=== PATIENT | male | born 1970 | race Caucasian/White ===

== ENCOUNTER 2021-03-24 12:19 | Emergency (ER) | payer MEDICAID ==
[~2021-03-24] VITALS: Ht 187.9 cm; Wt 83.9 kg
--- NOTE | 2021-03-24 12:44 | ED General ---
General Stated Complaint: CURYR,SOB,CONGESTION,BACK PAIN,CP Source of Information: Patient Exam Limitations: No Limitations (RICHMOND ALONZO APRN) History of Present Illness Date Seen by Provider: Mar 24, 2021 Time Seen by Provider: 12:42 Initial Comments To ER with headache, shortness of breath, cough congestion, back pain, chest pain, nausea, body aches. He is known to be Covid positive. He is unvaccinated and did not receive the infusion. Symptoms began on 03/12/2021. He tested positive at [facility] on 03/14/2021. He is otherwise healthy and takes no medications. Oxygen saturation 93% on arrival on room air here. Timing/Duration: Other Severity: Moderate Associated Systoms: Chest Pain, Cough, Fever/Chills, Headaches, Loss of Appetite, Malaise, Nausea/Vomiting (RICHMOND ALONZO APRN) Allergies and Home Medications Allergies Coded Allergies: No Known Drug Allergies (Unverified , 03/24/21) Patient Home Medication List Home Medication List Reviewed: Yes (RICHMOND ALONZO APRN) Albuterol Sulfate (Proair Hfa) 1 Puff Puff, 2 PUFF IH Q4H PRN for SHORTNESS OF BREATH Prescribed by: RICHMOND ALONZO on 03/24/21 1458 Dexamethasone (Decadron) 6 Mg Tablet, 6 MG PO DAILY Prescribed by: RICHMOND ALONZO on 03/24/21 1458 Hydrocodone/Acetaminophen (Hydrocodone-Acetamin 5-325 mg) 1 Each Tablet, 1 TAB PO Q4H PRN for PAIN-MODERATE (5-7) Prescribed by: RICHMOND ALONZO on 03/24/21 1458 Ondansetron (Ondansetron Odt) 8 Mg Tab.rapdis, 8 MG PO Q6H PRN for NAUSEA /VOMITING Prescribed by: RICHMOND ALONZO on 03/24/21 1458 Review of Systems Review of Systems Constitutional: see HPI, chills, fever EENTM: see HPI Respiratory: see HPI, cough, short of breath Cardiovascular: no symptoms reported, chest pain Genitourinary: no symptoms reported Musculoskeletal: no symptoms reported, muscle pain Skin: no symptoms reported Psychiatric/Neurological: See HPI, Headache Hematologic/Lymphatic: No Symptoms Reported Immunological/Allergic: no symptoms reported (RICHMOND ALONZO APRN) Physical Exam Vital Signs Vital Signs - First Documented (BRUKOLBYGEMANN,HALEIGH T MD) Vital Signs Capillary Refill : (RICHMOND ALONZO APRN) Height, Weight, BMI Height: '" Weight: lbs. oz. kg; BMI Method: General Appearance: No Apparent Distress, WD/WN, Thin, Other (No distress. Temperature 100.4, heart rate 85, oxygen 93 to 94% room air blood pressure 109/82. Flat affect, soft-spoken.) Eyes: Bilateral Eye Normal Inspection, Bilateral Eye PERRL, Bilateral Eye EOMI HEENT: PERRL/EOMI, TMs Normal Respiratory: No Accessory Muscle Use, No Respiratory Distress Cardiovascular: Regular Rate, Rhythm, Normal Peripheral Pulses Gastrointestinal: Normal Bowel Sounds, Non Tender, Soft Extremity: Normal Capillary Refill, Normal Inspection Neurologic/Psychiatric: Alert, Oriented x3 Skin: Normal Color (RICHMOND ALONZO APRN) Focused Exam Lactate Level 03/24/21 12:40: Lactic Acid Level 1.08 (HALEIGH CUELLAR MD) Lactic Acid Level Laboratory Tests Test 03/24/21 12:40 Lactic Acid Level 1.08 MMOL/L (0.50-2.00) (HALEIGH CUELLAR MD) Progress/Results/Core Measures Suspected Sepsis SIRS Temperature: Pulse: Respiratory Rate: Laboratory Tests 03/24/21 12:40: White Blood Count 8.0 Blood Pressure / Mean: 03/24/21 12:40: Lactic Acid Level 1.08 Laboratory Tests 03/24/21 12:40: Creatinine 1.03, Platelet Count 349, Total Bilirubin 0.7 (RICHMOND ALONZO APRN) Results/Orders Lab Results Laboratory Tests Test 03/24/21 12:40 Range/Units White Blood Count 8.0 4.3-11.0 10^3/uL Red Blood Count 5.48 4.30-5.52 10^6/uL Hemoglobin 16.4 13.3-17.7 g/dL Hematocrit 48 40-54 % Mean Corpuscular Volume 88 80-99 fL Mean Corpuscular Hemoglobin 30 25-34 pg Mean Corpuscular Hemoglobin Concent 34 32-36 g/dL Red Cell Distribution Width 11.9 10.0-14.5 % Platelet Count 349 130-400 10^3/uL Mean Platelet Volume 9.0 9.0-12.2 fL Immature Granulocyte % (Auto) 0 % Neutrophils (%) (Auto) 75 42-75 % Lymphocytes (%) (Auto) 17 12-44 % Monocytes (%) (Auto) 8 0-12 % Eosinophils (%) (Auto) 0 0-10 % Basophils (%) (Auto) 0 0-10 % Neutrophils # (Auto) 6.0 1.8-7.8 10^3/uL Lymphocytes # (Auto) 1.3 1.0-4.0 10^3/uL Monocytes # (Auto) 0.6 0.0-1.0 10^3/uL Eosinophils # (Auto) 0.0 0.0-0.3 10^3/uL Basophils # (Auto) 0.0 0.0-0.1 10^3/uL Immature Granulocyte # (Auto) 0.0 0.0-0.1 10^3/uL D-Dimer 2.64 H 0.00-0.49 UG/ML Sodium Level 140 135-145 MMOL/L Potassium Level 3.8 3.6-5.0 MMOL/L Chloride Level 103 98-107 MMOL/L Carbon Dioxide Level 25 21-32 MMOL/L Anion Gap 12 5-14 MMOL/L Blood Urea Nitrogen 15 7-18 MG/DL Creatinine 1.03 0.60-1.30 MG/DL Estimat Glomerular Filtration Rate 76 BUN/Creatinine Ratio 15 Glucose Level 111 H 70-105 MG/DL Lactic Acid Level 1.08 0.50-2.00 MMOL/L Calcium Level 9.0 8.5-10.1 MG/DL Corrected Calcium 9.3 8.5-10.1 MG/DL Total Bilirubin 0.7 0.1-1.0 MG/DL Aspartate Amino Transf (AST/SGOT) 39 H 5-34 U/L Alanine Aminotransferase (ALT/SGPT) 32 0-55 U/L Alkaline Phosphatase 53 40-136 U/L Troponin I < 0.028 <0.028 NG/ML C-Reactive Protein High Sensitivity 4.33 H 0.00-0.50 MG/DL B-Type Natriuretic Peptide < 10.0 <100.0 PG/ML Total Protein 7.9 6.4-8.2 GM/DL Albumin 3.6 3.2-4.5 GM/DL Procalcitonin 0.05 <0.10 NG/ML (HALEIGH CUELLAR MD) Micro Results Microbiology 03/24/21 Blood Culture - Preliminary, Resulted No growth 03/24/21 Blood Culture - Preliminary, Resulted No growth (HALEIGH CUELLAR MD) Vital Signs/I&O 03/24/21 03/24/21 03/24/21 03/24/21 12:25 12:25 12:58 13:28 Temp 37.9 37.9 37.9 37.6 Pulse 83 83 Resp 20 20 B/P (MAP) 109/82 109/82 (91) Pulse Ox 93 93 03/24/21 14:35 Temp 37.4 Pulse 67 Resp 18 B/P (MAP) 104/75 Pulse Ox 95 (HALEIGH CUELLAR MD) Vital Signs/I&O Capillary Refill : (RICHMOND ALONZO APRN) Departure Communication (Admissions) Family Conversation NAME: CHRIS VALENTIN [facility] REC#: [id number] PT STATUS: REG ER : 1970 PHYSICIAN: RICHMOND ALONZO APRN ADMIT DATE: 03/24/21/ER Draft Date of Exam:03/24/21 CT ANGIO CHEST W PROCEDURE: CT angiography of the chest with contrast. TECHNIQUE: Multiple contiguous axial images were obtained through the chest after uneventful bolus administration of intravenous contrast. 3D reconstructed CTA MIP acquisitions were also performed. Auto Exposure Controls were utilized during the CT exam to meet ALARA standards for radiation dose reduction. INDICATION: Elevated D-dimer and shortness of air. Patient is COVID 19 positive. Evaluation of pulmonary arterial system is without evidence of thrombus embolism. No filling defects are seen within central, lobar segmental branches. Thoracic aorta is normal caliber. There is no dissection. No pericardial or pleural fluid is detected. There are patchy groundglass infiltrates throughout bilateral upper and lower lobes as well as the lingula and right middle lobe consistent with COVID 19 pneumonia. Upper abdomen is unremarkable. IMPRESSION: 1. No evidence of pulmonary embolism or acute aortic disease. 2. Bilateral groundglass pulmonary infiltrates consistent with COVID 19 pneumonia. Report was faxed to [place] by alvarez at 2:19pm. Dictated on workstation # [id number] Dict: 03/24/21 1412 Trans: 03/24/21 1420 [facility] [id number] Interpreted by: ROME LOPEZ MD Electronically signed by: EKG shows sinus rhythm at [address] segment changes no ectopy normal intervals (RICHMOND ALONZO APRN) Impression Primary Impression: COVID-19 Disposition: 01 HOME, SELF-CARE Condition: Stable Departure-Patient Inst. Decision time for Depature: 14:22 (RICHMOND ALONZO APRN) Referrals: NO,LOCAL PHYSICIAN (PCP/Family) Primary Care Physician Patient Instructions: COVID-19 ED Add. Discharge Instructions: 1. Use Tylenol and ibuprofen for fevers and body aches. Steroid as directed. Return to ER for any concerns. Scripts Albuterol Sulfate (PROAIR HFA) 1 Puff Puff 2 PUFF IH Q4H PRN for SHORTNESS OF BREATH, #1 EA 1 PUFF = 90 MCG. Prov: RICHMOND ALONZO APRN 03/24/21 Dexamethasone (Decadron) 6 Mg Tablet 6 MG PO DAILY, #5 TAB . Prov: RICHMOND ALONZO APRN 03/24/21 Ondansetron (Ondansetron Odt) 8 Mg Tab.rapdis 8 MG PO Q6H PRN for NAUSEA/VOMITING, #10 TAB . Prov: RICHMOND ALONZO APRN 03/24/21 Hydrocodone/Acetaminophen (Hydrocodone-Acetamin 5-325 mg) 1 Each Tablet 1 TAB PO Q4H PRN for PAIN-MODERATE (5-7), #10 TAB . Prov: RICHMOND ALONZO APRN 03/24/21 Work/School Note: Work Release Form Date Seen in the Emergency Department: Mar 24, 2021 Return to Work: Mar 27, 2021 ATTENDING PHYSICIAN NOTE: I was physically present as attending physician in the emergency department during the care of this patient, but I was not directly involved in the decision making or delivery of care for this patient. (HALEIGH CUELLAR MD) RICHMOND ALONZO APRN Mar 24, 2021 12:44 HALEIGH CUELLAR MD Mar 27, 2021 06:48
[2021-03-24] MEDS ORDERED: ONDANSETRON 4 MG/2 ML (SDV) Z0FRAN IVP ONE (12:45)
[2021-03-24] MEDS ORDERED: LACTATED RINGERS 1,000 ML IV SCH (12:45)
[2021-03-24] MEDS ORDERED: KETOROLAC 30 MG/ML VIAL IVP ONE (12:45)
[2021-03-24] MEDS ORDERED: ACETAMINOPHEN 500 MG TAB (TYLENOL) PO ONE (12:45)
[2021-03-24 12:53] LABS: BASOPHILS % (AUTO) 0 % (0-10); EOSINOPHILS % (AUTO) 0 % (0-10); HEMATOCRIT 48 % (40-54); HEMOGLOBIN 16.4 g/dL (13.3-17.7); LYMPHOCYTES # (AUTO) 1.3 10^3/uL (1.0-4.0); LYMPHOCYTES % (AUTO) 17 % (12-44); MEAN CORPUSCULAR HEMOGLOBIN 30 pg (25-34); MEAN CORPUSCULAR HGB CONC 34 g/dL (32-36); MEAN CORPUSCULAR VOLUME 88 fL (80-99); MONOCYTES # (AUTO) 0.6 10^3/uL (0.0-1.0); MONOCYTES % (AUTO) 8 % (0-12); NEUTROPHILS % (AUTO) 75 % (42-75); PLATELET COUNT 349 10^3/uL (130-400)
[2021-03-24 13:03] LABS: ALBUMIN 3.6 GM/DL (3.2-4.5)
[2021-03-24 13:04] LABS: CHLORIDE 103 MMOL/L (98-107); POTASSIUM 3.8 MMOL/L (3.6-5.0); SODIUM 140 MMOL/L (135-145)
[2021-03-24 13:06] LABS: GLUCOSE 111 MG/DL (70-105); TOTAL PROTEIN 7.9 GM/DL (6.4-8.2)
[2021-03-24 13:07] LABS: CARBON DIOXIDE 25 MMOL/L (21-32)
[2021-03-24 13:08] LABS: BILIRUBIN,TOTAL 0.7 MG/DL (0.1-1.0)
[2021-03-24 13:09] LABS: ALKALINE PHOSPHATASE 53 U/L (40-136)
[2021-03-24 13:10] LABS: CREATININE SERUM 1.03 MG/DL (0.60-1.30); GFR ESTIMATED 76
[2021-03-24 13:11] LABS: BUN/CREATININE RATIO 15
[2021-03-24 13:13] LABS: ALANINE AMINOTRANSFERASE 32 U/L (0-55)
--- NOTE | 2021-03-24 13:30 | Diagnostic Imaging Report ---
Portable erect AP chest at 120h. INDICATION: Cough The heart size is within normal limits and stable when compared to 08/16/2011. In the interval since the prior study however alveolar/interstitial infiltrates have developed in both lungs with relative sparing of the right upper lobe. These findings are most likely due to pneumonia/atelectasis and may well be related to the patient's diagnosis of COVID 19. There is no significant pleural effusion identified. The mediastinum is not widened. The osseous structures are intact. IMPRESSION: The appearance of the chest has worsened since the prior study as bilateral alveolar/interstitial pulmonary infiltrates have developed. These are most likely due to pneumonia/atelectasis and may well be related to the patient's diagnosis of COVID 19. Report was faxed to [place] by alvarez at 1:30PM. Dictated by: Dictated on workstation # [id number]
[2021-03-24] MEDS ORDERED: NS 100 ML (IVPB) BAG IV ONE (14:00)
[2021-03-24] MEDS ORDERED: IOHEXOL 350 MG/ML 100 ML (OMNIPAQUE 350) VIAL IV ONE (14:00)
[2021-03-24] MEDS ORDERED: HOLD METFORMIN - RECEIVED CONTRAST 20 ML VIAL IV SCH (14:00)
--- NOTE | 2021-03-24 14:20 | Diagnostic Imaging Report ---
PROCEDURE: CT angiography of the chest with contrast. TECHNIQUE: Multiple contiguous axial images were obtained through the chest after uneventful bolus administration of intravenous contrast. 3D reconstructed CTA MIP acquisitions were also performed. Auto Exposure Controls were utilized during the CT exam to meet ALARA standards for radiation dose reduction. INDICATION: Elevated D-dimer and shortness of air. Patient is COVID 19 positive. Evaluation of pulmonary arterial system is without evidence of thrombus embolism. No filling defects are seen within central, lobar segmental branches. Thoracic aorta is normal caliber. There is no dissection. No pericardial or pleural fluid is detected. There are patchy groundglass infiltrates throughout bilateral upper and lower lobes as well as the lingula and right middle lobe consistent with COVID 19 pneumonia. Upper abdomen is unremarkable. IMPRESSION: 1. No evidence of pulmonary embolism or acute aortic disease. 2. Bilateral groundglass pulmonary infiltrates consistent with COVID 19 pneumonia. Report was faxed to [place] by alvarez at 2:19pm. Dictated by: Dictated on workstation # [id number]
[2021-03-24] MEDS ORDERED: ONDA8TAB13 PO ×2 (14:31→14:58)
[2021-03-24] MEDS ORDERED: DEXA6TAB6 PO ×2 (14:31→14:58)
[2021-03-24] MEDS ORDERED: RT-ALBUINH IH ×2 (14:31→14:58)
[2021-03-24] MEDS ORDERED: ACHD5005 PO ×2 (14:31→14:58)
[2021-03-24 14:35] VITALS: BP 104/75
== END 2021-03-24 14:36 | disposition home or self-care (01) ==
LOC: EDUNIT# 12:19 → ER 12:21
DX: U07.1 COVID-19 (principal)
CPT/HCPCS: 36415; 71045; 71275; 80053; 83605; 83880; 84145; 84484; 85025; 85379; 86141; 87040; 93005

== ENCOUNTER 2021-05-05 08:59 | Emergency (ER) | payer MEDICAID ==
[~2021-05-05] VITALS: Ht 187.9 cm; Wt 88.4 kg
[~2021-05-05 08:59] MED LIST: ACHD5005 PO; DEXA6TAB6 PO; ONDA8TAB13 PO; RT-ALBUINH IH
[2021-05-05 09:45] VITALS: BP 118/79
[2021-05-05] MEDS ORDERED: LIDOCAINE 1% INJ 20 ML VIAL ONE (10:46)
[2021-05-05] MEDS ORDERED: TRIAMCINOLONE ACET (KENALOG-40) 40 MG/ML 1 ML VIAL ONE (10:46)
--- NOTE | 2021-05-05 10:47 | ED Lower Extremity ---
General Chief Complaint: Lower Extremity Stated Complaint: R KNEE PAIN Nursing Triage Note: PT AMB TO [facility] WITH COMPLAINT OF RIGHT KNEE PAIN. STATES LAST NIGHT HE WAS WALKING AND HIS KNEE POPPED. 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 He turned and the top part of his body moved but the bottom part seem to stay planted. He felt a popping sensation in the knee and subsequent pain with weightbearing and moving the right knee. Onset: yesterday Severity: moderate Pain/Injury Location: right knee Method of Injury: twisted Allergies and Home Medications Allergies Coded Allergies: No Known Drug Allergies (Unverified , 03/24/21) Patient Home Medication List Home Medication List Reviewed: Yes Albuterol Sulfate (Proair Hfa) 1 Puff Puff, 2 PUFF IH Q4H PRN for SHORTNESS OF BREATH Prescribed by: RICHMOND ALONZO on 03/24/21 1458 Dexamethasone (Decadron) 6 Mg Tablet, 6 MG PO DAILY Prescribed by: RICHMOND ALONZO on 03/24/21 1458 Hydrocodone/Acetaminophen (Hydrocodone-Acetamin 5-325 mg) 1 Each Tablet, 1 TAB PO Q4H PRN for PAIN-MODERATE (5-7) Prescribed by: RICHMOND ALONZO on 03/24/21 1458 Ondansetron (Ondansetron Odt) 8 Mg Tab.rapdis, 8 MG PO Q6H PRN for NAUSEA/VOMITING Prescribed by: RICHMOND ALONZO on 03/24/21 1458 Review of Systems Constitutional: see HPI EENTM: see HPI Respiratory: no symptoms reported Cardiovascular: no symptoms reported Genitourinary: no symptoms reported Musculoskeletal: see HPI Skin: no symptoms reported Psychiatric/Neurological: No Symptoms Reported Past Iefslvr-Jffnau-Sfdyzp Hx Patient Social History Tobacco Use?: No Use of E-Cig and/or Vaping dev: No Substance use?: No Alcohol Use?: No Pt feels they are or have been: No Immunizations Up To Date Influenza Vaccine Up-to-Date: No; Not Current First/Initial COVID19 Vaccinat: NO Second COVID19 Vaccination Alvaro: NO Physical Exam Vital Signs Vital Signs - First Documented 05/05/21 09:45 Temp 35.7 Pulse 70 Resp 16 B/P (MAP) 118/79 (92) Pulse Ox 96 O2 Delivery Room Air Capillary Refill : Less Than 3 Seconds Height, Weight, BMI Height: '" Weight: lbs. oz. kg; 25.00 BMI Method: General Appearance: WD/WN, no apparent distress HEENT: PERRL/EOMI, normal ENT inspection Respiratory: no respiratory distress, no accessory muscle use Hips: bilateral hip non-tender, bilateral hip normal inspection, bilateral hip normal range of motion Legs: bilateral leg non-tender, bilateral leg normal inspection, bilateral leg normal range of motion Knees: right knee pain, right knee soft tissue tenderness, right knee swelling Ankles: bilateral ankle non-tender, bilateral ankle normal inspection, bilateral ankle normal range of motion Feet: bilateral foot non-tender, bilateral foot normal inspection, bilateral foot normal range of motion Neurologic/Psychiatric: alert, normal mood/affect, oriented x 3 Skin: normal color, warm/dry Palpable effusion of the right knee. Progress/Results/Core Measures Results/Orders My Orders Orders - RICHMOND ALONZO APRN Triamcinolone Acetonide Im (Kenalog-40) (05/05/21 10:45) Lidocaine 1% Inj 20 Ml (Xylocaine 1% Inj (05/05/21 10:45) Knee, Right, 3 Views (05/05/21 10:43) Triamcinolone Acetonide Im (Kenalog-40) (05/05/21 10:46) Lidocaine 1% Inj 20 Ml (Xylocaine 1% Inj (05/05/21 10:46) Medications Given in ED Current Medications Medications Dose Ordered Sig/Porter Route Start Time Stop Time Status Last Admin Dose Admin Lidocaine HCl 20 ml ONCE ONCE INJ 05/05/21 10:45 05/05/21 10:46 DC 05/05/21 10:57 20 ML Triamcinolone Acetonide 40 mg ONCE ONCE IA 05/05/21 10:45 05/05/21 10:46 DC 05/05/21 10:56 40 MG Vital Signs/I&O 05/05/21 09:45 Temp 35.7 Pulse 70 Resp 16 B/P (MAP) 118/79 (92) Pulse Ox 96 O2 Delivery Room Air Blood Pressure Mean: 92 Departure Communication (Admissions) 1131-I did offer him aspiration of the effusion as well as injection of steroid and lidocaine which he subsequently declined. He would just like a knee brace and some pain medication. Impression Primary Impression: Internal derangement of right knee Additional Impression: Effusion, right knee Disposition: 01 HOME, SELF-CARE Condition: Stable Departure-Patient Inst. Decision time for Depature: 10:47 Referrals: NO,LOCAL PHYSICIAN (PCP) Primary Care Physician SOMMER MENDOZA MD,SHRADDHA ANGELES,RAVINDER Becerra MD Patient Instructions: Internal Derangement of the Knee (DC) Add. Discharge Instructions: 1. This likely represents a meniscus injury of the knee. Follow-up with an orthopedic surgeon of your choosing. Tylenol and ibuprofen for pain control. Return to ER for any worsening. Call Saturday for appointment. Activity as tolerated in the meantime. All discharge instructions reviewed with patient and/or family. Voiced understanding. Scripts Hydrocodone/Acetaminophen (Hydrocodone-Acetamin 5-325 mg) 1 Each Tablet 1 TAB PO Q4H PRN for PAIN-MODERATE (5-7), #10 TAB Prov: RICHMOND ALONZO APRN 05/05/21 RICHMOND ALONZO APRN May 05, 2021 10:47
[2021-05-05] MEDS: TRIAMCINOLONE ACET (KENALOG-40) 40 MG/ML 1 ML VIAL IA ONE ×2 (10:56→11:32)
[2021-05-05] MEDS: LIDOCAINE 1% INJ 20 ML VIAL INJ ONE ×2 (10:57→11:32)
[2021-05-05] MEDS ORDERED: ACHD5005 PO (11:32)
--- NOTE | 2021-05-05 11:32 | Diagnostic Imaging Report ---
INDICATION: Right knee pain. FINDINGS: 3 views of the right knee show no fracture, dislocation or other acute abnormalities. IMPRESSION: Negative right knee. Dictated by: Dictated on workstation # [id number]
[2021-05-05] MEDS ORDERED: HYDROcodone/APAP 5 MG/325 MG (LORTAB) TAB PO ONE (11:45)
== END 2021-05-05 11:45 | disposition home or self-care (01) ==
LOC: EDUNIT# 08:59 → ER 09:02
DX: M23.91 Unspecified internal derangement of right knee (principal); X50.1XXA Overexertion from prolonged static or awkward postures, initial encounter; Y92.59 Other trade areas as the place of occurrence of the external cause; Y99.0 Civilian activity done for income or pay
CPT/HCPCS: 73562; 99283; L1830

== ENCOUNTER 2022-02-22 14:43 | Emergency (ER) | payer MEDICAID, MEDICARE ==
[~2022-02-22] VITALS: Ht 188 cm; Wt 85.0 kg
[~2022-02-22 14:43] MED LIST changes: +ALBU8.5H6 IH; -RT-ALBUINH IH
[2022-02-22] MEDS ORDERED: CYCL10TA25 PO (15:43)
[2022-02-22] MEDS ORDERED: IBUP-1780 PO (15:43)
--- NOTE | 2022-02-22 15:43 | ED Back Pain ---
General Chief Complaint: Back Problems Stated Complaint: LOWER BACK PAIN Nursing Triage Note: PT STATES LT LOWER BACK PAIN, HX OF RT BACK PAIN, DENIES ANY INJURY, SLEPT ON IT WRONG. 800 MG IBUPROFEN TAKEN THIS MORNING History of Present Illness Date Seen by Provider: Feb 22, 2022 Time Seen by Provider: 15:30 Initial Comments Patient is a 52-year-old male who presents to the emergency department with lumbar pain that began on Saturday. He states he woke up from sleep and when he stood up from bed felt a twinge in his left lower back. States the pain was mild initially but is progressively worsened. He states the pain is worse with any twisting or bending. Took a dose of ibuprofen this morning but has had nothing since. Denies any saddle anesthesia or bowel/bladder incontinence. Denies a history of diabetes or IV drug use. Allergies and Home Medications Allergies Coded Allergies: No Known Drug Allergies (Unverified , 03/24/21) Patient Home Medication List Home Medication List Reviewed: Yes Albuterol Sulfate (Ventolin Hfa) 1 Puff Puff, 2 PUFF IH Q4H PRN for SHORTNESS OF BREATH Prescribed by: RICHMOND ALONZO on 03/24/21 1458 Dexamethasone (Decadron) 6 Mg Tablet, 6 MG PO DAILY Prescribed by: RICHMOND ALONZO on 03/24/21 1458 Hydrocodone/Acetaminophen (Hydrocodone-Acetamin 5-325 mg) 1 Each Tablet, 1 TAB PO Q4H PRN for PAIN-MODERATE (5-7) Prescribed by: RICHMOND ALONZO on 03/24/21 1458 Hydrocodone/Acetaminophen (Hydrocodone-Acetamin 5-325 mg) 1 Each Tablet, 1 TAB PO Q4H PRN for PAIN-MODERATE (5-7) Prescribed by: RICHMOND ALONZO on 05/05/21 1132 Ondansetron (Ondansetron Odt) 8 Mg Tab.rapdis, 8 MG PO Q6H PRN for NAUSEA/VOMITING Prescribed by: RICHMOND ALONZO on 03/24/21 1458 Review of Systems Constitutional: no symptoms reported EENTM: no symptoms reported Respiratory: no symptoms reported Cardiovascular: no symptoms reported Gastrointestinal: no symptoms reported Genitourinary: no symptoms reported Musculoskeletal: back pain Skin: no symptoms reported Psychiatric/Neurological: No Symptoms Reported Past Rnrdhtx-Jyvcnm-Suwijb Hx Patient Social History Tobacco Use?: Yes Tobacco type used: Cigarettes Smoking Status: Former Smoker Substance use?: No Alcohol Use?: No Immunizations Up To Date First/Initial COVID19 Vaccinat: NO Second COVID19 Vaccination Alvaro: NO Third COVID19 Vaccination Date: NO Past Medical History Surgery/Hospitalization HX: LUNG CA TUMOR REMOVED IN 2014 Physical Exam Vital Signs Vital Signs - First Documented 02/22/22 15:15 Temp 36.8 Pulse 72 Resp 18 B/P (MAP) 123/85 (98) Pulse Ox 97 O2 Delivery Room Air Capillary Refill : Height, Weight, BMI Height: '" Weight: lbs. oz. kg; 24.00 BMI Method: General Appearance: No Apparent Distress, WD/WN HEENT: PERRL/EOMI, TMs Normal, Normal ENT Inspection, Pharynx Normal Neck: Full Range of Motion, Normal Inspection, Non Tender, Supple Cardiovascular: Regular Rate, Rhythm Respiratory: Chest Non Tender, Lungs Clear, Normal Breath Sounds Gastrointestinal: Non Tender, Soft Extremity: Normal Range of Motion, Non Tender, No Calf Tenderness Neurologic/Psychiatric: Alert, Oriented x3, No Motor/Sensory Deficits, Normal Mood/Affect Mild tenderness to palpation noted to the left lumbar paraspinal muscles; very mild spasm elicited with palpation Progress/Results/Core Measures Results/Orders Vital Signs/I&O 02/22/22 15:15 Temp 36.8 Pulse 72 Resp 18 B/P (MAP) 123/85 (98) Pulse Ox 97 O2 Delivery Room Air Blood Pressure Mean: 98 Progress Progress Note : Progress Note Patient is nontoxic and well-hydrated on exam. Exam is consistent with lumbar myofascial pain. There is no midline tenderness to palpation. This along with no history of recent trauma, there is no indication for imaging at this time. Very low suspicion for epidural abscess. Patient was given a dose of intramuscular ketorolac in the emergency department. Will be discharged home with prescription for NSAID and muscle relaxer. Follow-up with PCP. Return precautions for urgent symptomology discussed. Patient verbalized understanding. Departure Impression Primary Impression: Acute lumbar myofascial strain Qualified Codes: S39.012A - Strain of muscle, fascia and tendon of lower back, initial encounter Disposition: 01 HOME, SELF-CARE Condition: Stable Departure-Patient Inst. Decision time for Depature: 15:40 Referrals: NO,LOCAL PHYSICIAN (PCP/Family) Primary Care Physician Patient Instructions: Low Back Pain (DC) Scripts Cyclobenzaprine HCl (Cyclobenzaprine HCl) 10 Mg Tablet 10 MG PO Q8H PRN for PAIN-SEE DOSE INSTRUCTIONS for 5 Days, #15 TAB 0 Refills Prov: AARON FONTANEZ APRN 02/22/22 Ibuprofen (Ibuprofen) 800 Mg Tablet 800 MG PO Q8H PRN for PAIN-MILD for 5 Days, #15 TAB 0 Refills Prov: AARON FONTANEZ APRN 02/22/22 AARON FONTANEZ APRN Feb 22, 2022 15:43
[2022-02-22] MEDS ORDERED: KETOROLAC 30 MG/ML VIAL IM ONE (15:45)
[2022-02-22 15:52] VITALS: BP 123/85
== END 2022-02-22 15:52 | disposition home or self-care (01) ==
LOC: EDUNIT# 14:43 → ER 14:46
DX: S39.012A Strain of muscle, fascia and tendon of lower back, initial encounter (principal); F17.210 Nicotine dependence, cigarettes, uncomplicated; Z28.310 Unvaccinated for COVID-19; X58.XXXA Exposure to other specified factors, initial encounter
CPT/HCPCS: 99284

== ENCOUNTER 2022-05-11 16:26 | Emergency (ER) | payer MEDICAID ==
[~2022-05-11] VITALS: Ht 188 cm; Wt 88.5 kg
[~2022-05-11 16:26] MED LIST changes: +CYCL10TA25 PO; +IBUP-1780 PO
--- NOTE | 2022-05-11 17:07 | Diagnostic Imaging Report ---
INDICATION: Cough, sore throat, chest pain. COMPARISON: Exam from 03/24/2021. FINDINGS: Postsurgical changes to the right upper lung present. Residual lobes are clear and well expanded. Some old traumatic or thoracotomy deformity to posterior right 5th rib, chronic. No acute appearing pulmonary parenchymal, pleural or chest wall pathology. IMPRESSION: No acute appearing abnormality. Dictated by: Dictated on workstation # [id number]
[2022-05-11] MEDS ORDERED: NIRM1TAB PO (17:24)
--- NOTE | 2022-05-11 17:26 | ED Cough/URI ---
General Chief Complaint: COVID19 Suspect/Confirmed Stated Complaint: COVID+, CHEST PAIN, COUGHING, SORE THROAT Nursing Triage Note: PT AMBULATE TO ROOM 09 WITH C/O COUGH, RUNNY NOSE, SORE THROAT, AND BILAT CHEST PAIN WHEN COUGHING X3 DAYS. PT REPORTS TESTING COVID POS YESTERDAY. PT REPORTS TAKING BENEDRYL AND HYDROCODONE FOR C/O. PT REPORTS HX OF LUNG CANCER IN 2008 WITH RIGHT UPPER LOBECTOMY. Source: patient Exam Limitations: no limitations (PRETTY ELIZABETH APRN) History of Present Illness Date Seen by Provider: May 11, 2022 Time Seen by Provider: 16:51 Initial Comments 52-year-old male presents to ER with reports of COVID. States he has had symptom since Saturday, tested positive yesterday. Reports cough with rib pain, body aches, sore throat, rhinitis, nasal congestion, chills, dry mouth. H e is requesting something for the cough and the pain. Denies nausea/vomiting, diarrhea. Past medical history includes tumor in his right lung with lobectomy in 2008. Finished chemo in 2014, and he has been clear since that. Does not take any medications. (PRETTY ELIZABETH APRN) Allergies and Home Medications Allergies Coded Allergies: No Known Drug Allergies (Unverified , 03/24/21) Patient Home Medication List Home Medication List Reviewed: Yes (PRETTY ELIZABETH APRN) Albuterol Sulfate (Ventolin Hfa) 1 Puff Puff, 2 PUFF IH Q4H PRN for SHORTNESS OF BREATH Prescribed by: RICHMOND ALONZO on 03/24/21 1458 Cyclobenzaprine HCl (Cyclobenzaprine HCl) 10 Mg Tablet, 10 MG PO Q8H PRN for PAIN-SEE DOSE INSTRUCTIONS Prescribed by: Sean Newby on 02/22/22 1543 Dexamethasone (Decadron) 6 Mg Tablet, 6 MG PO DAILY Prescribed by: RICHMOND ALONZO on 03/24/21 1458 Hydrocodone/Acetaminophen (Hydrocodone-Acetamin 5-325 mg) 1 Each Tablet, 1 TAB PO Q4H PRN for PAIN-MODERATE (5-7) Prescribed by: RICHMOND ALONZO on 03/24/21 1458 Hydrocodone/Acetaminophen (Hydrocodone-Acetamin 5-325 mg) 1 Each Tablet, 1 TAB PO Q4H PRN for PAIN-MODERATE (5-7) Prescribed by: RICHMOND ALONZO on 05/05/21 1132 Ibuprofen (Ibuprofen) 800 Mg Tablet, 800 MG PO Q8H PRN for PAIN-MILD Prescribed by: Sean Newby on 02/22/22 1543 Nirmatrelvir/Ritonavir (Paxlovid 300-100 mg Pack (Eua)) 300 Mg (150 Mg X 2)-100 Mg Tab.ds.pk, 1 EACH PO BID Prescribed by: Pretty Elizabeth on 05/11/22 1724 Ondansetron (Ondansetron Odt) 8 Mg Tab.rapdis, 8 MG PO Q6H PRN for NAUSEA/VOMITING Prescribed by: RICHMOND ALONZO on 03/24/21 1458 Review of Systems Review of Systems Constitutional: see HPI (PRETTY ELIZABETH APRN) Past Fxpbwjf-Bwyqtc-Isygnh Hx Patient Social History Tobacco Use?: No Smoking Status: Never a Smoker Smokeless Tobacco Frequency: Never a User Use of E-Cig and/or Vaping dev: No Use of E-Cig and/or Vaping Efrain: Never a User Substance use?: No Alcohol Use?: No Pt feels they are or have been: No (PRETTY ELIZABETH APRN) Immunizations Up To Date First/Initial COVID19 Vaccinat: NO Second COVID19 Vaccination Alvaro: NO Third COVID19 Vaccination Date: NO (PRETTY ELIZABETH APRN) Past Medical History Surgery/Hospitalization HX: LUNG CA TUMOR REMOVED IN 2014 (PRETTY ELIZABETH APRN) Physical Exam Vital Signs - First Documented 05/11/22 17:41 Pulse Ox 99 (HALEIGH CUELLAR MD) Capillary Refill : Less Than 3 Seconds (PRETTY ELIZABETH APRN) Height: '" Weight: lbs. oz. kg; 25.00 BMI Method: General Appearance: WD/WN, no apparent distress Neck: supple, normal inspection Respiratory: lungs clear, normal breath sounds, no respiratory distress, no acc essory muscle use Cardiovascular: regular rate, rhythm, no edema, no gallop, no JVD, no murmur Extremities: normal range of motion, normal inspection Neurologic/Psychiatric: alert, normal mood/affect, oriented x 3 Skin: normal color, warm/dry (PRETTY ELIZABETH APRN) Progress/Results/Core Measures Suspected Sepsis SIRS Temperature: Pulse: 81 Respiratory Rate: 15 Blood Pressure 115 /75 Mean: 88 (PRETTY ELIZABETH APRN) Results/Orders Vital Signs/I&O 05/11/22 05/11/22 05/11/22 16:37 16:37 17:41 Temp 36.9 36.7 Pulse 81 76 Resp 15 17 B/P (MAP) 115/75 (88) 131/85 Pulse Ox 99 O2 Delivery Room Air Room Air Room Air (HLAEIGH CUELLAR MD) Vital Signs/I&O Capillary Refill : Less Than 3 Seconds (PRETTY ELIZABETH APRN) Blood Pressure Mean: 88 Progress Note #1: Time: 17:05 Progress Note Patient seen and evaluated, resting comfortably in bed, no acute distress. Based on exam and symptoms, will obtain chest x-ray to rule out pneumonia due to COVID. Consider labs, but patient's vital signs are normal, he is afebrile. Progress Note #2: Progress Note Chest x-ray reviewed, no acute cardiopulmonary process. Will discharge with Paxlovid. Discharge instructions and return precautions provided. (PRETTY ELIZABETH APRN) Diagnostic Imaging Diagonstic Imaging: Xray Plain Films/CT/US/NM/MRI: chest Comments [facility], [place] NAME: CHRIS VALENTIN [facility] REC#: [id number] PT STATUS: REG ER : 1970 PHYSICIAN: PRETTY ELIZABETH APRN ADMIT DATE: 05/11/22/ER Signed Date of Exam:05/11/22 CHEST 1 VIEW, AP/PA ONLY INDICATION: Cough, sore throat, chest pain. COMPARISON: Exam from 03/24/2021. FINDINGS: Postsurgical changes to the right upper lung present. Residual lobes are clear and well expanded. Some old traumatic or thoracotomy deformity to posterior right 5th rib, chronic. No acute appearing pulmonary parenchymal, pleural or chest wall pathology. IMPRESSION: No acute appearing abnormality. Dictated by: Dictated on workstation # [id number] Dict: 05/11/22 1704 Trans: 05/11/221730 [facility] [id number] Interpreted by: AGUILAR GUTIERREZ Electronically signed by: AGUILAR GUTIERREZ 05/11/221730 (PRETTY ELIZABETH APRN) Departure Impression Primary Impression: COVID-19 Disposition: 01 HOME, SELF-CARE Condition: Stable Departure-Patient Inst. Referrals: NO,LOCAL PHYSICIAN (PCP/Family) Primary Care Physician Patient Instructions: COVID-19 Home Care/Discharge Add. Discharge Instructions: Take llcw-hsn-rdaajac cold and flu medications which will help with your cough, pain, nasal congestion. Do not take additional Tylenol with these medications because they contain Tylenol. You may take ibuprofen as needed for pain. Use a humidifier with distilled water next to your bedside when sleeping to help with cough and nasal congestion. Takes Paxlovid as prescribed. If it causes nausea and vomiting, stop taking it. Drink plenty of water, stay away from caffeinated and high sugar beverages. Return for shortness of breath, high fevers, chest pain not caused by cough, or any other new, concerning, or worsening symptoms. Follow-up with your primary care provider. All discharge instructions reviewed with patient and/or family. Voiced understanding. Scripts Nirmatrelvir/Ritonavir (Paxlovid 300-100 mg Pack (Eua)) 300 Mg (150 Mg X 2)-100 Mg Tab.ds.pk 1 EACH PO BID for 5 Days, #10 PKG Prov: PRETTY ELIZABETH APRN 05/11/22 ATTENDING PHYSICIAN NOTE: I was physically present as attending physician in the emergency department during the care of this patient, but I was not directly involved in the decision making or delivery of care for this patient. (HALEIGH CUELLAR MD) PRETTY ELIZABETH APRN May 11, 2022 17:26 HALEIGH CUELLAR MD May 14, 2022 08:10
[2022-05-11 17:41] VITALS: BP 131/85
== END 2022-05-11 17:41 | disposition home or self-care (01) ==
LOC: EDUNIT# 16:26 → ER 16:28
DX: U07.1 COVID-19 (principal); R05.9 Cough, unspecified; R07.9 Chest pain, unspecified; Z73.0 Burn-out
CPT/HCPCS: 71045